=== PATIENT | female | born 1985 | race Caucasian/White ===

== ENCOUNTER 2018-04-05 10:02 | Emergency (ER) | payer SELFPAY, OTHER ==
[2018-04-05 10:31] LABS: URINE BLOOD (Dip) POC 1+ (NEGATIVE); URINE GLUCOSE (Dip) POC Negative (NEGATIVE); URINE KETONES (Dip) POC 3+ (NEGATIVE); URINE LEUKOCYTE EST (Dip) POC Negative (NEGATIVE); URINE NITRITE (Dip) POC Negative (NEGATIVE); URINE TOTAL PROTEIN POC 1+ (NEGATIVE)
[2018-04-05] MEDS: DIPHENHYDRAMINE 50 MG INJ IV (10:33)
[2018-04-05] MEDS: SOD CHLORIDE 0.9% 1,000 ML IV (10:33)
[2018-04-05] MEDS: ONDANSETRON 4 MG INJ IV (10:33)
[2018-04-05] MEDS: KETOROLAC 30 MG INJ IV (10:40)
[2018-04-05] MEDS: ACETAMINOPHEN 500 MG TAB PO (10:40)
== END 2018-04-05 11:41 | disposition home or self-care (01) ==
LOC: FTE 10:02
DX: R51 Headache (principal)
CPT/HCPCS: 81003; 81025; 96361; 96374; 96375; 99284-25